=== PATIENT | female | born 1995 | race Caucasian/White ===

== ENCOUNTER 2022-06-01 09:59 | Emergency (ER) | payer OTHER ==
[2022-06-01] MEDS ORDERED: methylPREDNISolone Sod Succ/PF 125 MG/2 ML VIAL ONE (10:17)
[2022-06-01] MEDS ORDERED: hydrOXYzine 25 MG TAB ONE (10:17)
[2022-06-01] MEDS ORDERED: Famotidine 20 MG TAB ONE (10:17)
== END 2022-06-01 11:00 | disposition home or self-care (01) ==
LOC: BURERS 09:59
DX: T78.1XXA Other adverse food reactions, not elsewhere classified, initial encounter (principal)
CPT/HCPCS: 96372; 99283; J2930